=== PATIENT | female | born 1945 | race Caucasian/White ===

== ENCOUNTER → 2018-11-10 | Outpatient (CLI) | payer MEDICARE ==
[~2018-11-10] MED LIST: IOPAMIDOL 370 MG/ML 200 ML INFUS..BTL INJ ONE; METOPROLOL SUCC50 MG PO; MICARDIS HCT 41 EACH PO; SODIUM CHLORIDE 0.9% 500ML 500 ML ONE; SODIUM CHLORIDE 0.9% 50ML 50 ML ONE
[2018-11-10 09:02] LABS: CREATININE, SERUM 1.4 mg/dL (0.57-1.11)
--- NOTE | 2018-11-10 10:57 | Diagnostic Imaging Report ---
EXAM: CT Abdomen and Pelvis WITH contrast INDICATION: Abdominal pain, anemia COMPARISON: None. TECHNIQUE: Abdomen and pelvis were scanned utilizing a multidetector helical scanner from the lung base to the pubic symphysis after administration of IV contrast. Coronal and sagittal reformations were obtained. Routine protocol was performed. Scan was performed when during portal venous phase. IV CONTRAST: 100 cc of Isovue 370 ORAL CONTRAST: Water COMPLICATIONS: None RADIATION DOSE: Total DLP: 524.9 mGy*cm Dose modulation, iterative reconstruction, and/or weight based adjustment of the mA/kV was utilized to reduce the radiation dose to as low as reasonably achievable. FINDINGS: LINES and TUBES: None. LOWER THORAX: Calcified granuloma in the right middle lobe. Patchy dependent atelectasis. Coronary atherosclerosis. Mitral annular calcifications. HEPATOBILIARY: No evidence of mass. Focal hypodensity adjacent to the falciform ligament likely represents focal fatty infiltration. No biliary ductal dilation. GALLBLADDER: No radio-opaque stones or sludge. No wall thickening. SPLEEN: No splenomegaly. PANCREAS: No focal masses or ductal dilatation. ADRENALS: No adrenal nodules KIDNEYS/URETERS: Kidneys enhance symmetrically. No evidence of hydronephrosis, solid mass, or stone. GI TRACT: No evidence of bowel obstruction. Sigmoid colonic diverticulosis without CT evidence of diverticulitis. There is focal decompression/possible narrowing of the distal transverse colon without significant wall thickening, as seen on series 2, image 32. PELVIC ORGANS/BLADDER: The bladder is partially decompressed. Status post hysterectomy. LYMPH NODES: No lymphadenopathy. VESSELS: Extensive atherosclerotic changes of the abdominal aorta and branch vessels. Mild stenosis of the distal abdominal aorta near the bifurcation with coral reef type atherosclerotic calcification. Likely severe narrowing at the origin of the celiac artery with post stenotic dilatation proximally. The SMA origin is patent. Atherosclerotic calcifications with stenosis of the origin of the left renal artery, the degrees of stenosis is difficult to quantify but likely at least moderate. PERITONEUM / RETROPERITONEUM: No free air or fluid. BONES AND SOFT TISSUES: Degenerative changes of the visualized spine. No suspicious lytic or blastic lesions. Mild age indeterminate loss of vertebral body height at L5. CONCLUSION: Focal decompression/possible narrowing of the distal transverse colon without significant wall thickening, incompletely evaluated in the absence of oral contrast. Suggest correlation with colonoscopy for further evaluation in the setting of anemia. Extensive atherosclerotic changes of the abdominal aorta and mesenteric vasculature. 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 Likely at least moderate stenosis at the origin of the left renal artery. Mild age indeterminate loss of vertebral body height at L5. Suggest clinical evaluation for point tenderness at this location. Signed by: Dr. Lisbeth Cyr MD on 11/10/2018 10:53 AM
== END ==
LOC: CT 07:58
PROVIDERS: ATTEND Internal Medicine Medical Oncology
DX: R10.9 Unspecified abdominal pain (principal); D50.9 Iron deficiency anemia, unspecified
CPT/HCPCS: 36415; 74177; 82565; 84520; 96360; J7040; Q9967

== ENCOUNTER → 2018-12-04 | Day surgery (SDC) | payer MEDICARE ==
[2018-11-30 10:41] LABS: BASOPHILS # (AUTO) 0.1 (0.0-0.1); BASOPHILS % 0.7 % (0.0-1.0); EOSINOPHILS # (AUTO) 0.2 (0.0-0.4); EOSINOPHILS % 2.2 % (0.0-6.0); HEMATOCRIT 23.4 % (34.2-44.1); HEMOGLOBIN 7.3 g/dL (12.0-16.0); LYMPHOCYTES # (AUTO) 1.7 (1.0-3.2); LYMPHOCYTES % 19.5 % (18.0-39.1); MEAN CORPUSCULAR HGB CONC 31.2 g/dL (31-35); MEAN CORPUSCULAR VOLUME 83.3 fL (81-99); MONOCYTES # (AUTO) 0.8 (0.2-0.8); MONOCYTES % 9.4 % (4.4-11.3); NEUTROPHILS % 67.4 % (38.7-80.0); PLATELET COUNT 432 x10e3/uL (140-360); RED BLOOD COUNT 2.81 x10e6/uL (3.6-5.1); RED CELL DISTRIBUTION WIDTH 23.6 % (11.7-14.4)
[~2018-12-04] MED LIST changes: +ASPIR 8181 MG PO; +CLORAZEPATE DI7.5 MG PO; +FENTANYL CITRATE/PF 100MCG/2 ML INJ ONE; +FOLIC ACID1 MG PO; +HYOSCYAMINE SULFATE 0.5 MG/ML INJ ONE; -IOPAMIDOL 370 MG/ML 200 ML INFUS..BTL INJ ONE; +LIDOCAINE HCL 2% LOCAL INJ 5 ML SDV VIAL INJ ONE; +MELOXICAM7.5 MG PO; +MICARDIS HCT 81 EAC1 PO; +MIDAZOLAM HCL 2 MG/2 ML VIAL ONE; +NIACIN100 MG PO; +PRESERVISION T1 EACH PO; +PROPOFOL IV EMULSION 10 MG/ML 50 ML VIAL ONE; -SODIUM CHLORIDE 0.9% 500ML 500 ML ONE; -SODIUM CHLORIDE 0.9% 50ML 50 ML ONE
[2018-12-04 09:12] VITALS: BP 141/70
[2018-12-04 09:35] LABS: % IRON SATURATION 62 % (15-50); IRON 203 ug/dL (50-170); TOTAL IRON BINDING CAPACITY 325 ug/dL (261-478); TRANSFERRIN 232 mg/dL (180-382)
--- NOTE | 2018-12-04 15:33 | Operative Report ---
DATE OF PROCEDURE: 12/04/2018 SURGEON: Larry Esquivel MD PROCEDURES: 1. Esophagogastroduodenoscopy with biopsies. 2. Colonoscopy with polypectomy. INDICATION FOR EGD: Anemia. INDICATION FOR COLONOSCOPY: Anemia. MEDICATIONS: The patient was done under MAC, please see anesthesiologist's note. PROCEDURE IN DETAIL: With the patient in left lateral decubitus position, flexible fiberoptic Olympus gastroscope was introduced into the esophagus under direct visualization without any difficulty. There was some patchy erythema noted in the distal esophagus. Focal nodularity and friability noted at the GE junction that was biopsied. The scope was then advanced with ease into the stomach traversing a small sliding hiatal hernia. Mucosa overlying the antrum and the body revealed some patchy erythema and low-grade edema and biopsies were obtained and sent to stain for H pylori. The pylorus was of normal contour and shape, it was intubated with ease and the scope was advanced all the way to the second portion of the duodenum. Biopsies were obtained from the proximal second portion and duodenal bulb to rule out sprue. The scope was then withdrawn back into the stomach and retroflexed and the mucosa overlying the fundus and the cardia appeared to be within normal limits. The scope was then straightened out, it was subsequently withdrawn. The patient tolerated the procedure well. IMPRESSION: 1. Distal esophagitis, mild. 2. Focal nodularity, friability, gastroesophageal junction biopsied. 3. Small sliding hiatal hernia. 4. Gastritis, biopsied. Biopsies sent to stain for Helicobacter pylori. 5. Rule out sprue. PLAN: Follow up histology. Initiate Protonix 40 mg one p.o. q.a.m. a.c. The patient was then turned around. After adequate lubrication of the anal canal, flexible fiberoptic Olympus colonoscope was inserted into the rectum with ease and advanced all the way to the cecum. The scope was then withdrawn slowly. Mucosa overlying the cecum appeared to be within normal limits. One polyp was snared from the ascending colon. The transverse appeared to be within normal limits. Diverticular disease was noted to involve the descending and the sigmoid colon. Minute polyp was noted in the distal rectum, it was hot biopsied. The scope was then retroflexed into the distal rectum and moderate-sized internal hemorrhoids were noted, none of which was actively bleeding. The scope was then straightened out, it was subsequently withdrawn. The patient tolerated the procedure well. IMPRESSION: 1. Ascending colon polyp, snared. 2. Diverticulosis. 3. Rectal polyp, hot biopsied. 4. Internal hemorrhoids, none actively bleeding. PLAN: Follow up histology. Initiate high-fiber, low-fat diet. Initiate high-fiber supplement. The patient might benefit from a followup colonoscopy in 5 years. Larry Esquivel [place] [facility] [place][id number] cc: Vineet Pa DO
--- OUTSIDE RECORDS SUMMARY | 2018-12-06 14:43 | XMS REPORT | Clinical Summary ---
Author Author [facility] Organization [facility] Address Unknown Phone Unavailable Care Team Providers Care Qa Engineer Name Role Phone Vineet Pa DO PCP Allergies No Known Allergies Medications End Date Status Medication Sig Dispensed Refills Start Date Active metoprolol succinate XL 0 (TOPROL-XL) 200 mg 24 hr 7 tablet Status Hospital, Clinic, or Ordered Dose Route Frequency Start End Date Other Facility Date Administered Medication Active lidocaine (XYLOCAINE) 10 30 mg inj once 06/17/20 mg/mL (1 %) injection 30 17 mgIndications: Primary osteoarthritis of right knee Active bupivacaine (MARCAINE) 3 mL inj once 06/17/20 0.5 % (5 mg/mL) injection 17 3 mLIndications: Primary osteoarthritis of right knee Ended lidocaine (XYLOCAINE) 10 30 mg inj once 03/31/20 mg/mL (1 %) injection 30 18 8 mgIndications: Osteoarthritis of right knee, unspecified osteoarthritis type Ended bupivacaine (MARCAINE) 3 mL inj once 03/31/20 0.5 % (5 mg/mL) injection 18 8 3 mLIndications: Osteoarthritis of right knee, unspecified osteoarthritis type Ended sodium hyaluronate 20 mg IAtc once 03/31/20 (viscosup) (EUFLEXXA) 18 8 syringe 20 mgIndications: Osteoarthritis of right knee, unspecified osteoarthritis type Ended sodium hyaluronate 20 mg IAtc once 04/05/20 (viscosup) (EUFLEXXA) 18 8 syringe 20 mgIndications: Osteoarthritis of left knee, unspecified osteoarthritis type Ended sodium hyaluronate 20 mg IAtc once 04/07/20 (viscosup) (EUFLEXXA) 18 8 syringe 20 mgIndications: Osteoarthritis of right knee, unspecified osteoarthritis type Ended lidocaine (XYLOCAINE) 10 30 mg inj once 04/07/20 mg/mL (1 %) injection 30 18 8 mgIndications: Osteoarthritis of right knee, unspecified osteoarthritis type Ended bupivacaine (MARCAINE) 3 mL inj once 04/07/20 0.5 % (5 mg/mL) injection 18 8 3 mLIndications: Osteoarthritis of right knee, unspecified osteoarthritis type Ended lidocaine (XYLOCAINE) 10 30 mg inj once 04/12/20 mg/mL (1 %) injection 30 18 8 mgIndications: Osteoarthritis of left knee, unspecified osteoarthritis type Ended bupivacaine (MARCAINE) 3 mL inj once 04/12/20 0.5 % (5 mg/mL) injection 18 8 3 mLIndications: Osteoarthritis of left knee, unspecified osteoarthritis type Ended sodium hyaluronate 20 mg IAtc once 04/12/20 (viscosup) (EUFLEXXA) 18 8 syringe 20 mgIndications: Osteoarthritis of left knee, unspecified osteoarthritis type Ended lidocaine (XYLOCAINE) 10 30 mg inj once 04/14/20 mg/mL (1 %) injection 30 18 8 mgIndications: Osteoarthritis of right knee, unspecified osteoarthritis type Ended bupivacaine (MARCAINE) 3 mL inj once 04/14/20 0.5 % (5 mg/mL) injection 18 8 3 mLIndications: Osteoarthritis of right knee, unspecified osteoarthritis type Ended sodium hyaluronate 20 mg IAtc once 04/14/20 (viscosup) (EUFLEXXA) 18 8 syringe 20 mgIndications: Osteoarthritis of right knee, unspecified osteoarthritis type Ended sodium hyaluronate 20 mg IAtc once 04/21/20 (viscosup) (EUFLEXXA) 18 8 syringe 20 mgIndications: Osteoarthritis of left knee, unspecified osteoarthritis type Ended lidocaine (XYLOCAINE) 10 30 mg inj once 04/21/20 mg/mL (1 %) injection 30 18 8 mgIndications: Osteoarthritis of left knee, unspecified osteoarthritis type Ended bupivacaine (MARCAINE) 3 mL inj once 04/21/20 0.5 % (5 mg/mL) injection 18 8 3 mLIndications: Osteoarthritis of left knee, unspecified osteoarthritis type Active Problems No known active problems Encounters Care Team Description Date Type Specialty Jordi Martinez MD Osteoarthritis of left knee, unspecified osteoarthritis type (Primary Dx) 04/21/2018 Clinical Orthopedic Surgery Support Jordi Martinez MD Osteoarthritis of right knee, unspecified osteoarthritis type (Primary Dx) 04/14/2018 Clinical Orthopedic Surgery Support Jordi Martinez MD Osteoarthritis of left knee, unspecified osteoarthritis type (Primary Dx) 04/12/2018 Clinical Orthopedic Surgery Support Jordi Martinez MD Osteoarthritis of right knee, unspecified osteoarthritis type (Primary Dx) 04/07/2018 Clinical Orthopedic Surgery Support Jordi Martinez MD Osteoarthritis of left knee, unspecified osteoarthritis type (Primary Dx) 04/05/2018 Clinical Orthopedic Surgery Support Jordi Martinez MD Osteoarthritis of right knee, unspecified osteoarthritis type (Primary Dx) 03/31/2018 Clinical Orthopedic Surgery Support after 12/05/2017 Family History Medical History Relation Name Comments Heart disease Father Hypertension Father Hypertension Mother Relation Name Status Comments Father Mother Social History Date Tobacco Use Types Packs/Day Years Used Never Smoker Smokeless Tobacco: Never Used Alcohol Use Drinks/Week oz/Week Comments Yes Sex Assigned at Date Recorded Not on file Industry Job Start Date Occupation Not on file Not on file Not on file Travel End Travel History Travel Start No recent travel history available. Last Filed Vital Signs Time Taken Vital Sign Reading 04/05/2018 1:07 PM CDT Blood Pressure 152/71 04/05/2018 1:07 PM CDT Pulse 78 - Temperature - - Respiratory Rate - - Oxygen Saturation - - Inhaled Oxygen - Concentration - Weight - - Height - - Body Mass Index - Plan of Treatment Health Maintenance Due Date Last Done Comments BREAST CANCER SCREENING 1993 COLON CANCER SCREENING 1993 SHINGLES VACCINES (#1) 1993 65+ PNEUMOCOCCAL VACCINE 2008 (1 of 2 - PCV13) PNEUMOCOCCAL 2008 POLYSACCHARIDE VACCINE AGE 65 AND OVER INFLUENZA VACCINE 02/17/2019 Procedures Comments Procedure Name Priority Date/Time Associated Diagnosis ND ARTHROCENTESIS Routine 04/21/2018 Osteoarthritis of left ASPIR&/INJ MAJOR JT/BURSA 2:00 PM CDT knee, unspecified W/O US osteoarthritis type ND ARTHROCENTESIS Routine 04/14/2018 Osteoarthritis of right ASPIR&/INJ MAJOR JT/BURSA 8:00 AM CDT knee, unspecified W/O US osteoarthritis type ND ARTHROCENTESIS Routine 04/12/2018 Osteoarthritis of left ASPIR&/INJ MAJOR JT/BURSA 9:00 AM CDT knee, unspecified W/O US osteoarthritis type ND ARTHROCENTESIS Routine 04/07/2018 Osteoarthritis of right ASPIR&/INJ MAJOR JT/BURSA 1:30 PM CDT knee, unspecified W/O US osteoarthritis type ND ARTHROCENTESIS Routine 04/05/2018 Osteoarthritis of left ASPIR&/INJ MAJOR JT/BURSA 1:30 PM CDT knee, unspecified W/O US osteoarthritis type ND ARTHROCENTESIS Routine 03/31/2018 Osteoarthritis of right ASPIR&/INJ MAJOR JT/BURSA 9:00 AM CDT knee, unspecified W/O US osteoarthritis type after 12/05/2017 Results * Large Joint Arthrocentesis (04/21/2018 2:00 PM CDT) Narrative Performed At Jordi Martinez MD 04/21/20187:29 PM Large Joint Arthrocentesis Consent given by: patient Timeout: Immediately prior to procedure a time out was called to verify the correct patient, procedure, equipment, user support analyst supervisor and site/side marked as required Supporting Documentation Indications: pain and joint swelling Procedure Details Preparation: Patient was prepped and draped in the usual sterile fashion Ultrasound guided: no Medications provided by specialty pharmacy: yes Platelet Rich Plasma Used: no PRP Used Location: knee - L knee Left side: Needle size: 20 G Approach: lateral Left knee medications administered: 20 mg sodium hyaluronate (viscosup) 10 mg/mL; 2 mL bupivacaine 0.25 % (2.5 mg/mL); 3 mL lidocaine 10 mg/mL (1 %) Aspirate amount: 5 mL Aspirate: serous and blood-tinged Patient tolerance: patient tolerated the procedure well with no immediate complications * Large Joint Arthrocentesis (04/14/2018 8:00 AM CDT) Narrative Performed At Jordi Martinez MD 04/14/2018 10:46 AM Large Joint Arthrocentesis Consent given by: patient Timeout: Immediately prior to procedure a time out was called to verify the correct patient, procedure, equipment, user support analyst supervisor and site/side marked as required Supporting Documentation Indications: pain Procedure Details Preparation: Patient was prepped and draped in the usual sterile fashion Ultrasound guided: no Medications provided by specialty pharmacy: yes Platelet Rich Plasma Used: no PRP Used Location: knee - R knee Right side: Needle size: 20 G Approach: lateral Right knee medications administered: 20 mg sodium hyaluronate (viscosup) 10 mg/mL; 2 mL bupivacaine 0.5 % (5 mg/mL); 3 mL lidocaine 10 mg/mL (1 %) Aspirate amount: 0 mL Patient tolerance: patient tolerated the procedure well with no immediate complications * Large Joint Arthrocentesis (04/12/2018 9:00 AM CDT) Narrative Performed At Jordi Martinez MD 04/13/20185:47 PM Large Joint Arthrocentesis Consent given by: patient Timeout: Immediately prior to procedure a time out was called to verify the correct patient, procedure, equipment, user support analyst supervisor and site/side marked as required Supporting Documentation Indications: pain Procedure Details Preparation: Patient was prepped and draped in the usual sterile fashion Ultrasound guided: no Medications provided by specialty pharmacy: yes Platelet Rich Plasma Used: no PRP Used Location: knee - L knee Left side: Needle size: 20 G Approach: lateral Left knee medications administered: 20 mg sodium hyaluronate (viscosup) 10 mg/mL; 2 mL bupivacaine 0.5 % (5 mg/mL); 3 mL lidocaine 10 mg/mL (1 %) Aspirate amount: 0 mL Patient tolerance: patient tolerated the procedure well with no immediate complications * Large Joint Arthrocentesis (04/07/2018 1:30 PM CDT) Narrative Performed At Jordi Martinez MD 04/08/20183:58 PM Large Joint Arthrocentesis Consent given by: patient Timeout: Immediately prior to procedure a time out was called to verify the correct patient, procedure, equipment, user support analyst supervisor and site/side marked as required Supporting Documentation Indications: pain and joint swelling Procedure Details Preparation: Patient was prepped and draped in the usual sterile fashion Ultrasound guided: no Platelet Rich Plasma Used: no PRP Used Location: knee - R knee Right side: Needle size: 20 G Approach: lateral Right knee medications administered: 20 mg sodium hyaluronate (viscosup) 10 mg/mL; 2 mL bupivacaine 0.25 % (2.5 mg/mL); 3 mL lidocaine 10 mg/mL (1 %) Aspirate amount: 5 mL Aspirate: clear and serous Patient tolerance: patient tolerated the procedure well with no immediate complications * Large Joint Arthrocentesis (04/05/2018 1:30 PM CDT) Narrative Performed At Jordi Martinez MD 04/09/2018 12:01 AM Large Joint Arthrocentesis Consent given by: patient Timeout: Immediately prior to procedure a time out was called to verify the correct patient, procedure, equipment, user support analyst supervisor and site/side marked as required Supporting Documentation Indications: pain and joint swelling Procedure Details Preparation: Patient was prepped and draped in the usual sterile fashion Ultrasound guided: no Medications provided by specialty pharmacy: yes Platelet Rich Plasma Used: no PRP Used Location: knee - L knee Left side: Needle size: 20 G Approach: lateral Left knee medications administered: 20 mg sodium hyaluronate (viscosup) 10 mg/mL; 2 mL bupivacaine 0.25 % (2.5 mg/mL); 2 mL lidocaine 20 mg/mL (2 %) Aspirate amount: 0 mL Patient tolerance: patient tolerated the procedure well with no immediate complications * Large Joint Arthrocentesis (03/31/2018 9:00 AM CDT) Narrative Performed At Jordi Martinez MD 04/05/20188:18 AM Large Joint Arthrocentesis Consent given by: patient Supporting Documentation Indications: pain and joint swelling Procedure Details Preparation: Patient was prepped and draped in the usual sterile fashion Ultrasound guided: no Platelet Rich Plasma Used: no PRP Used Location: knee - R knee Right side: Needle size: 20 G Approach: lateral Right knee medications administered: 20 mg sodium hyaluronate (viscosup) 10 mg/mL; 2 mL bupivacaine 0.5 % (5 mg/mL); 3 mL lidocaine 10 mg/mL (1 %) Aspirate amount: 10 mL Aspirate: clear, serous and yellow Patient tolerance: patient tolerated the procedure well with no immediate complications after 12/05/2017 Insurance Type Payer Benefit Subscriber ID Effective Phone Address Plan / Dates Group HMO AETNA MEDICARE AETNA xxxxxxxx 2016-P MEDICARE resent HMO/PPO [facility] Advance Directives Patient has advance care planning documents on file. For more information, chirag e contact: Carlos Zheng [address] [place] [address]
--- OUTSIDE RECORDS SUMMARY | 2018-12-06 14:43 | XMS REPORT ---
Author Author [facility] Address Unknown Phone Unavailable Care Team Providers Care Splash Line Operator Name Role Phone ISRRAEL GOVEA Unavailable Unavailable Problems This patient has no known problems. Allergies, Adverse Reactions, Alerts This patient has no known allergies or adverse reactions. Medications This patient has no known medications. Results Test Description Test Time Test Comments Text Results Atomic Results Result Comments CT ABDOMEN/PELVIS W 2018-11-10 10:39:00 [place] [id number] Patient Name: BETZAIDA ARREOLA MR #: [id number] : 1945 Age/Sex: 73/F Req #: [id number] Adm Physician: Ordered by: ISRRAEL GOVEA MD Report #: [id number] Location: CT Room/Bed: Procedure: [id number] CT/CT ABDOMEN/PELVIS W Exam Date: 11/10/18 Exam Time: 1000 REPORT STATUS: Signed EXAM: CT Abdomen and Pelvis WITH contrast IND ICATION: Abdominal pain, anemia COMPARISON: None. TECHNIQUE: Abdomen and pelvis were scanned utilizing a multidetector helical scanner from the lung base to the pubic symphysis after administration of IV contrast. Coronal and sagittal reformations were obtained. Routine protocol was performed. Scan was performed when during portal venous phase. IV CONTRAST: 100 cc of Isovue 370 ORAL CONTRAST: Water COMPLICATIONS: None RADIATION DOSE: Total DLP: 524.9 mGy*cm Dose modulation, iterative reconstruction, and/or weight based adjustment of the mA/kV was utilized to reduce the radiation dose to as low as reasonably achievable. FINDINGS: LINES and TUBES: None. LOWER THORAX: Calcified granuloma in the right middle lobe. Patchy dependent atelectasis. Coronary atherosclerosis. Mitral annular calcifications. HEPATOBILIARY: No evidence of mass. Focal hypodensity adjacent to the falciform ligament likely represents focal fatty infiltration. No biliary ductal dilation. GALLBLADDER: No radio-opaque stones or sludge. No wall thickening. SPLEEN: No splenomegaly. PANCREAS: No focal masses or ductal dilatation. ADRENALS: No adrenal nodules KIDNEYS/URETERS: Kidneys enhance symmetrically. No evidence of hydronephrosis, solid mass, or stone. GI TRACT: No evidence of bowel obs truction. Sigmoid colonic diverticulosis without CT evidence of diverticulitis. There is focal decompression/possible narrowing of the distal transverse colon without significant wall thickening, as seen on series 2, image 32. PELVIC ORGANS/BLADDER: The bladder is partially decompressed. Status post hysterectomy. LYMPH NODES: No lymphadenopathy. VESSELS: Extensive atherosclerotic changes of the abdominal aorta and branch vessels. Mild stenosis of the distal abdominal aorta near the bifurcation with coral reef type atherosclerotic calcification. Likely severe narrowing at the origin of the celiac artery with post stenotic dilatation proximally. The SMA origin is patent. Atherosclerotic calcifications with stenosis of the origin of the left renal artery, the degrees of stenosis is difficult to quantify but likely at least moderate. PERITONEUM / RETROPERITONEUM: No free air or fluid. BONES AND SOFT TISSUES: Degenerative changes of the visualized spine. No suspicious lytic or blastic lesions. Mild age indeterminate loss of vertebral body height at L5. CONCLUSION: Focal decompression/possible narrowing of the distal transverse colon without significant wall thickening, incompletely evaluated in the absence of oral contrast. Suggest correlation with colonoscopy for further evaluation in the setting of anemia. Extensive atherosclerotic changes of the abdominal aorta and mesenteric vasculature. 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 Likely at least moderate stenosis at the origin of the left renal artery. Mild age indeterminate loss of vertebral body height at L5. Suggest clinical evaluation for point tenderness at this location. Signed by: Dr. Lara Chand MD on 11/10/2018 10:53 AM Dictated By: LARA CHAND MD Transcribed By: PATRICK on 11/10/181052 COPY TO: ISRRAEL GOVEA MD
== END | disposition home or self-care (01) ==
LOC: OR 06:00
PROVIDERS: ATTEND Internal Medicine Gastroenterology
DX: D64.89 Other specified anemias (principal); D12.2 Benign neoplasm of ascending colon; K62.1 Rectal polyp; K29.70 Gastritis, unspecified, without bleeding; K29.80 Duodenitis without bleeding; K21.0 Gastro-esophageal reflux disease with esophagitis; K31.89 Other diseases of stomach and duodenum; K44.9 Diaphragmatic hernia without obstruction or gangrene; K57.30 Diverticulosis of large intestine without perforation or abscess without bleeding; K64.8 Other hemorrhoids; R06.09 Other forms of dyspnea; I10 Essential (primary) hypertension; F41.9 Anxiety disorder, unspecified; Z88.8 Allergy status to other drugs, medicaments and biological substances; Z01.810 Encounter for preprocedural cardiovascular examination; Z01.812 Encounter for preprocedural laboratory examination; Z79.82 Long term (current) use of aspirin; Z68.30 Body mass index [BMI] 30.0-30.9, adult
CPT/HCPCS: 36415 ×2; 43239; 45384; 45385; 83540; 84466; 85025; 85045; 88305; 88312; 93005; J1980; J2001; J2250; J2704

== ENCOUNTER → 2018-12-27 | Outpatient (CLI) | payer MEDICARE ==
[~2018-12-27] MED LIST changes: -FENTANYL CITRATE/PF 100MCG/2 ML INJ ONE; -HYOSCYAMINE SULFATE 0.5 MG/ML INJ ONE; -LIDOCAINE HCL 2% LOCAL INJ 5 ML SDV VIAL INJ ONE; -MIDAZOLAM HCL 2 MG/2 ML VIAL ONE; -PROPOFOL IV EMULSION 10 MG/ML 50 ML VIAL ONE
--- NOTE | 2018-12-27 09:31 | Diagnostic Imaging Report ---
FLUOROSCOPIC SMALL BOWEL SERIES GORING CUTTER(S): Lisbeth Cyr MD Indication: Anemia. Comparison: CT abdomen/pelvis with contrast 11/10/2018. Radiation Dose: Total dose: 5.45 mGy Total fluoroscopy time: 0.5 minutes Procedure: Small bowel follow through exam was performed using oral barium. Preliminary image was obtained before administration of contrast and serial overhead images were obtained after administration of oral barium. Fluoroscopy was performed and spot images were obtained. DISCUSSION: AUTOMATION DEVELOPER: The bowel gas pattern is non-obstructive. No acute bony abnormality. STOMACH: Unremarkable mucosal pattern. SMALL BOWEL: Bulb and sweep are normal. Duodenal-jejunal junction is in the normal expected position. Small bowel loops are normal in caliber and distribution. There is no evidence of fistula, mucosal changes, stricture or dilation. The transit time was within normal limits. Spot image of the terminal ileum was unremarkable. COLON: Filling defects within the proximal colon likely reflect stool contents. IMPRESSION: Unremarkable fluoroscopic small bowel series. Signed by: Dr. Lisbeth Cyr MD on 12/27/2018 9:28 AM
== END ==
LOC: DX 07:11
PROVIDERS: ATTEND Internal Medicine Gastroenterology
DX: D64.89 Other specified anemias (principal)
CPT/HCPCS: 74250